=== PATIENT | female | born 1945 | race Caucasian/White ===

== ENCOUNTER 2017-05-16 18:43 | Emergency (ER) | payer OTHER ==
[~2017-05-16] VITALS: Ht 157.5 cm; Wt 74.8 kg
--- NOTE | ~2017-05-16 | EKG ---
[address] [email or web address] [address] ELECTROCARDIOGRAM REPORT Name: CONCHITASAMI ROSA M [facility] #[id number] Admission: 05/16/17 Attend Phys: Discharge: 05/16/17 Date of : 49 Report #: [id number] THIS REPORT FOR: //name// [facility] ED Test Date: 2017-05-16 Test Time: 19:50:16 Pat Name: SAMI ARANGO Department: Room: Gender: F Bundle Shaker: [id number] : 1945 Requested By: Dani Doll Order Number: [id number] MD: Cole Anne Measurements Intervals [place] Rate: 87 P: 41 UT: 136 QRS: 3 QRSD: 74 T: 27 QT: 383 QTc: 461 Interpretive Statements Sinus rhythm Left ventricular hypertrophy Compared to ECG 12/13/2013 17:36:03 No significant changes Electronically Signed On 05-16-2017 23:12:46 CDT by Cole Anne [email or web address] <ELECTRONICALLY SIGNED> By: Cole Anne MD 05/16/17 2312 D: 10/1947 49 Cole Anne MD /KARIME
[~2017-05-16 18:43] MED LIST: ADULT LOW DOSE81 MG PO; BAYER CHEWABLE81 MG PO; CALCIUM 500 +1 EAC5 PO; CATAPRES0.2 MG PO; CHLORTHALIDONE25 MG PO; CINNAMON PO; CLARITIN10 MG PO; COUMADIN 3 MG TA3 M1 PO; DAYPRO600 MG PO; ECONAZOLE 1% CR30 G1; ESTRACE2 MG PO; FENOFIBRATE160 MG PO; FISH OIL 1,001000 M1 PO; FLUOROURACIL40 GM TP; GARLIC OIL1 EAC1 PO; HYDROCODON-ACE1 EAC7 PO; MILK THISTLE500 MG PO; MIRALAX17 GM PO; MIRALAX255 GM PO; MOBIC7.5 MG PO; MULTIVITAMINS1 EAC7 PO; NIACIN 500 MG500 M1 PO; PROVENTIL HFA6.7 G1 INH; REFRESH TEARS15 ML OPHTHALMIC; TIZANIDINE HCL 22 M1 PO; ZANAFLEX4 MG PO
[2017-05-16] MEDS ORDERED: REQUIP0.5 MG PO (19:01)
[2017-05-16] MEDS ORDERED: PROTONIX 20 MG20 M1 PO (19:01)
[2017-05-16] MEDS ORDERED: TUMERIC PO (19:01)
[2017-05-16] MEDS ORDERED: GEMFIBROZIL 60600 MG PO (19:10)
[2017-05-16] MEDS ORDERED: TURMERIC 500 M1 EACH PO (19:12)
[2017-05-16 19:45] LABS: URINE BILIRUBIN NEGATIVE (Negative); URINE BLOOD NEGATIVE (Negative); URINE COLOR YELLOW; URINE GLUCOSE-RANDOM* NEGATIVE (Negative); URINE KETONES NEGATIVE (Negative); URINE PROTEIN (DIPSTICK) NEGATIVE (Negative); URINE UROBILINOGEN 0.2 E.U./dl (0.2-1.0)
[2017-05-16 19:46] LABS: URINE LEUKOCYTES-REFLEX 2+ (Negative)
[2017-05-16 19:58] LABS: CASTS None Seen /LPF (None Seen); CRYSTALS None Seen /LPF (None Seen); SQUAMOUS >10 Many /LPF (0-3); URINE RBC 0-2 Rare /HPF (0-2); URINE WBC-REFLEX >25 Many /HPF (0-5); WBC CLUMPS Few (None Seen)
[2017-05-16 20:01] LABS: HEMATOCRIT 39.5 % (37.0-47.0); HEMOGLOBIN 13.1 gm/dL (12.0-15.0); MCH 30.8 pg (26.0-34.0); MCHC 33.2 g/dL (28.0-37.0); MCV 92.7 fL (80.0-100.0); PLATELET COUNT 253 thou/uL (150-400); RBC 4.26 mil/uL (4.20-5.00); RDW 12.9 % (10.5-14.5); WBC 5.3 thou/uL (4.0-11.0)
[2017-05-16 20:04] LABS: MANUAL DIFF YES
[2017-05-16 20:12] LABS: ANION GAP 8 mmol/L (7-16); BUN 15 mg/dL (7-18); CALCIUM 9.5 mg/dL (8.5-10.1); CHLORIDE 106 mmol/L (98-107); CO2 27 mmol/L (21-32); CREATININE 0.9 mg/dL (0.6-1.0); GLUCOSE 124 mg/dL (74-106); POTASSIUM 3.9 mmol/L (3.5-5.1); SODIUM 141 mmol/L (136-145)
[2017-05-16 20:19] LABS: APTT 28.5 Seconds (24.5-32.8); PROTIME 10.4 Seconds (9.3-11.4)
[2017-05-16 20:21] LABS: ALBUMIN 3.7 g/dL (3.4-5.0); ALKALINE PHOSPHATASE 151 U/L (46-116); MAGNESIUM 2.3 mg/dL (1.8-2.4); SGOT 38 U/L (15-37); SGPT 33 U/L (30-65); TOTAL BILIRUBIN 0.3 mg/dL (<0.1-1.0); TOTAL PROTEIN 10.5 g/dL (6.4-8.2); TROPONIN-I < 0.04 ng/mL (<0.04-0.07)
[2017-05-16 20:55] LABS: ABSOLUTE NEUTROPHILS 2.2 thou/uL (1.4-8.2); ANISOCYTOSIS SLIGHT; MICROCYTES SLIGHT; TOTAL CELL COUNT 100
[2017-05-16] MEDS ORDERED: KEFLEX500 MG PO (21:42)
[2017-05-16] MEDS ORDERED: TRAMADOL 50 MG50 MG PO (21:42)
== END 2017-05-16 21:59 | disposition home or self-care (01) ==
LOC: ER 18:43
PROVIDERS: Emergency Medicine
DX: R06.00 Dyspnea, unspecified (principal); N39.0 Urinary tract infection, site not specified; K76.0 Fatty (change of) liver, not elsewhere classified; K21.9 Gastro-esophageal reflux disease without esophagitis; E78.00 Pure hypercholesterolemia, unspecified; I10 Essential (primary) hypertension; I26.99 Other pulmonary embolism without acute cor pulmonale; Z90.710 Acquired absence of both cervix and uterus; Z98.890 Other specified postprocedural states; Z88.6 Allergy status to analgesic agent

== ENCOUNTER → 2018-01-09 | Outpatient (CLI) | payer OTHER ==
[~2018-01-09] MED LIST changes: +GEMFIBROZIL 60600 MG PO; +KEFLEX500 MG PO; +PROTONIX 20 MG20 M1 PO; +REQUIP0.5 MG PO; +TRAMADOL 50 MG50 MG PO; +TUMERIC PO; +TURMERIC 500 M1 EACH PO
== END ==
LOC: RAD 11:22
DX: M48.07 Spinal stenosis, lumbosacral region (principal); M51.37 Other intervertebral disc degeneration, lumbosacral region; M47.896 Other spondylosis, lumbar region; M54.16 Radiculopathy, lumbar region

== ENCOUNTER → 2018-02-06 | Outpatient (CLI) | payer OTHER ==
[~2018-02-06] VITALS: Ht 157.5 cm; Wt 76.2 kg
[~2018-02-06] MED LIST changes: +CINNAMON500 MG PO; +NEURONTIN 300300 M1 PO; -PROTONIX 20 MG20 M1 PO; +PROTONIX40 M1 PO; +TOPICORT 0.25%15 GM TOP
--- NOTE | ~2018-02-06 | HPC ---
[facility] [place] [address] [place] [address] PAIN MANAGEMENT CONSULTATION Name: SAMI ARANGO [facility] [id number] Admission: 02/06/18 Attend Phys: Pako Yoder DO Discharge: Date of : 49 Report #: [id number] THIS REPORT FOR: //name// CC: Pako Pompa MD DATE OF SERVICE: 02/06/2018 REFERRING PHYSICIAN: John Pompa MD. CHIEF COMPLAINT: Right anterior thigh pain. HISTORY OF PRESENT ILLNESS: As you know, the patient is a 72-year-old female who has been experiencing right anterior thigh pain, which is steady from the groin to the knee. She indicates pain began on 12/22/2017. She states that she has undergone recent MRI of the lumbar spine, but no definitive findings to correlate to her symptoms. Due to lack of improvement with conservative treatment, the patient was referred to our clinic to discuss potential treatment options for anterior thigh pain. The patient indicates pain is continuous and constant, describes the pain as sharp, places current pain score 7/10, daily average at 10/10, worst pain has been 10/10. The patient states pain is exacerbated with sitting for any length of time, walking. Nothing tends to improve pain. The patient does state that she has pain while lying down, but intermittently it will exacerbate. She has been referred to our service to discuss initially what may be the source of her symptoms. PAST MEDICAL HISTORY: 1. Hypertension. 2. Degenerative joint disease. 3. Osteoarthritis. 4. Gastroesophageal reflux disease. 5. Restless leg syndrome. PAST SURGICAL HISTORY: 1. Back surgery in 1989. 2. Hysterectomy. 3. Rotator cuff repair. 4. Foot surgery. SOCIAL HISTORY: The patient denies tobacco, alcohol, IV or illicit drug use. She is retired, retired years ago, not receiving workmen's compensation nor is trying to obtain disability benefits. Unaccompanied today. [facility] [address] [place] [address] PAIN MANAGEMENT CONSULTATION Name: SAMI ARANGO Room #: REG [facility].#: [id number] Admission: 02/06/18 Attend Phys: Pako Yoder DO Discharge: Date of : 49 Report #: [id number] REVIEW OF SYSTEMS: Positive for fatigue and weakness, frequent and recurrent headaches, wearing corrective eyewear, hearing loss with tinnitus, earaches with drainage, chronic sinus problems with rhinitis, mouth sores, sexual difficulty, lightheadedness and dizziness, numbness and tingling sensations, nervousness, insomnia, heat and cold intolerance, gastroesophageal reflux disease, and restless leg. All other review of systems negative per 12-point review of systems other than those listed in history of present illness. Pain impact score 58/70, indicating severe interference of daily activities secondary to pain. ALLERGIES: No known drug allergies. CURRENT MEDICATIONS: Ropinirole 0.5 mg once a day, pantoprazole 40 mg per day, gemfibrozil 600 mg a day, hydrocodone 5/325 four times a day, cinnamon 1000 mg 2 tabs twice a day. IMAGING: MRI lumbar spine obtained on 01/23/2018 shows L1-L2 with mild bilateral facet changes. No central canal neural foraminal narrowing. L2-L3 mild generalized disk bulge, moderate facet degenerative changes and ligamentum flavum hypertrophy, no central canal or neural foraminal stenosis. L3-L4, mild generalized disk bulge, mild bilateral facet arthropathy. No significant central canal neural foraminal stenosis. L4-L5, mild generalized disk bulge, severe disk space loss, mild posterior degenerative changes, previous right hemilaminectomy, no central canal neural foraminal stenosis. L5-S1 unremarkable. PQRS: The patient has osteoarthritis of the low back, bilateral knees and foot. She has no rheumatoid arthritis. She places pain intensity 7/10. She is not a fall risk, has not had fallen in the last 3 months. She is on treatment for hypertension, but does not take any blood thinners. She is not on opioid medications, has low risk for opioid abuse. Functional assessment tool 58/70, indicating severe interference of daily activities secondary to pain. PHYSICAL EXAMINATION: VITAL SIGNS: Blood pressure 153/78, pulse is 82, respiratory rate 16, unlabored. The patient is 97% on room air. Height 5 feet 2 inches tall, weight 168 pounds, BMI calculated 30.7. GENERAL: Well-developed, well-nourished, well-hydrated 72-year-old female, appears stated age, placing current pain score no greater than 7/10. HEENT: Normocephalic, atraumatic. Pupils equal, round, reactive to light. Extraocular muscles are intact. Sclerae nonicteric without injection. NEUROLOGIC: Cranial nerves 2-12 grossly intact. Speech fluent. The patient deemed a good historian. [facility] [address] [place] [address] PAIN MANAGEMENT CONSULTATION Name: SAMI ARANGO Room #: REG [facility] García#: [id number] Admission: 02/06/18 Attend Phys: Pako Yoder DO Discharge: Date of : 49 Report #: [id number] LUNGS: Clear, no wheeze, rhonchi or rales. CARDIOVASCULAR: Regular. No appreciable gallop or rub. ABDOMEN: Soft, nontender, nondistended. EXTREMITIES: Show no clubbing, no cyanosis, no edema. MUSCULOSKELETAL: The patient has some palpatory tenderness over the paraspinal musculature of the lower lumbar spine, no spinous process tenderness. Seated straight leg raising negative. Supine straight leg raising negative. Karol test negative. Modified Gaenslen's positive for only axial back pain, no radiation of symptoms. She does have some palpatory tenderness along the quadriceps muscle on the right when compared to left. Muscle bulk and tone are symmetrical. Ankle clonus negative. Babinski is negative. ASSESSMENT: 1. Right anterior thigh pain. 2. Intermittent low back pain. PLAN: 1. The patient has been referred to our service to discuss potential treatment options for right anterior thigh pain. At this point, I am unable to advise the patient on appropriate treatment option as I cannot determine from her physical exam nor from her MRI the source of the symptoms. I am pleased to advise the patient that the findings on the MRI would not correlate with the distribution of pain that she is experiencing, thus interventional treatments would not be necessary, nor would a long-term therapy from a pain management be necessary. The findings on MRI do not provide distribution of symptoms into the anterior thigh. The only findings that would be at all potential of a source of discomfort would be the L4-L5 level, but again does not correlate to the distribution on the anterior thigh, radiating from the groin to the top of the knee. I advised such to the patient today. 2. The patient does appear to be suffering from some myofascial symptoms, possible EMG may be helpful in this case, though I do not feel that she has any radicular component. There could be some underlying peripheral nerve issue and possibly even some injury to the quadriceps itself, but nothing in the lower back that is concerning for radicular symptoms. Further evaluation with EMG could be recommended. I will defer to the primary team if they wish to have the EMG study completed. This would be helpful to at least potentially rule in or rule out a possible etiology. Again, by physical exam, history she provides, it does not appear to be a radicular issue given the findings on MRI, certainly not something that is generated from the low back. There is a possibility she may be experiencing an iliohypogastric or femoral type of injury, but this is not correlating to any findings from the lumbar area. 3. We made no changes in the patient's medication management. She is to continue current medical management as prescribed through her PCP. 4. Will be available to see the patient back in followup visit for further evaluation. At present, I do not have a definitive treatment option for this patient given the findings on physical exam and the lack of correlating findings [address] [address] PAIN MANAGEMENT CONSULTATION Name: ARANGOSAMI Room #: REG [facility] García#: [id number] Admission: 02/06/18 Attend Phys: Pako Yoder DO Discharge: Date of : 49 Report #: [id number] in the lumbar region. Recommend conservative treatment initially. If this is ineffective, EMG may be helpful in determining whether this is a peripheral neuropathy or some form of myopathy. 5. We wish to thank Dr. Pompa for the referral of the patient to our clinic. If she does return for further evaluation, we will keep you apprised of those discussions. At present, I do not have any interventional treatment or definitive treatment for this patient. Certainly we can see her back in followup visit if requested, but at this point, I would recommend further evaluation and more conservative treatment options. Again, we wish to thank Dr. Pompa for the referral of the patient to our clinic. By: [id number] Pako Yoder DO /nt
[2018-02-06 12:58] VITALS: BP 153/78
== END ==
LOC: PAIN 08:22
DX: M79.651 Pain in right thigh (principal); M54.5 Low back pain; I10 Essential (primary) hypertension; K21.9 Gastro-esophageal reflux disease without esophagitis

== ENCOUNTER → 2018-03-06 | Outpatient (CLI) | payer OTHER ==
[~2018-03-06] VITALS: Ht 157.5 cm; Wt 78.4 kg
--- NOTE | ~2018-03-06 | HPC ---
[facility] [place] [address] [place] [address] PAIN MANAGEMENT CONSULTATION Name: SAMI ARANGO Room #: REG [facility].#: [id number] Admission: 03/06/18 Attend Phys: Pako Yoder DO Discharge: Date of : 49 Report #: [id number] THIS REPORT FOR: //name// CC: Pako Rodrigues DATE OF SERVICE: 03/06/2018 CHIEF COMPLAINT: Right anterior thigh pain. HISTORY OF PRESENT ILLNESS: As you know, the patient is a 72-year-old female who has been experiencing right anterior thigh pain, which is steady from the groin to the knee. She indicates pain began on 12/22/2017. States that she has undergone MRI of the lumbar spine with no definitive findings to correlate symptoms. Due to lack of improvement, the patient was referred to our clinic. We saw the patient in consultation on 02/06/2018. At that visit, the patient was diagnosed with right anterior thigh pain, intermittent low back pain and started on gabapentin. The medication has worked well. She is now placing pain score 1-2/10, states pain is well controlled. She is having no side effects with the therapy. She is extremely pleased with response to medication, returning today for refill of therapy. ALLERGIES: No known drug allergies. CURRENT MEDICATIONS: Ropinirole 0.5 mg once a day, pantoprazole 40 mg once a day, gemfibrozil 600 mg once a day, hydrocodone 5/325 four times a day p.r.n., cinnamon extract 1000 mg 2 tabs twice a day, gabapentin 300 mg morning and 900 mg at night. SOCIAL HISTORY: The patient denies tobacco, alcohol, IV or illicit drug use. She is retired, retired years ago. She is unaccompanied today. PQRS: The patient has known osteoarthritis of the low back, bilateral knees and feet, has no rheumatoid arthritis. She places pain today at 1-/10, not a fall risk, has not had a fall in the last 3 months. She is not on blood thinners. She is treated for hypertension. She is not on opioids. She has a low opioid addiction potential. She is placing functional assessment pain impact score at moderate, 38/70. PHYSICAL EXAMINATION: VITAL SIGNS: Blood pressure 134/78, pulse 83, respiratory rate 16 and unlabored. The patient is 97% on room air. Height 5 feet 2 inches tall, weight 172.8 pounds, BMI calculated at 31.6. GENERAL: Well-developed, well-nourished, well-hydrated 72-year-old female appearing stated age, placing current pain score 1-210[place] [address] PAIN MANAGEMENT CONSULTATION Name: SAMI ARANGO ROSA M Room #: REG [facility] Raquel#: [id number] Admission: 03/06/18 Attend Phys: Pako Yoder DO Discharge: Date of : 49 Report #: [id number] HEENT: Normocephalic, atraumatic. Pupils equal, round, reactive to light. Extraocular muscles are intact. Sclerae nonicteric, without injection. EXTREMITIES: Show no clubbing, no cyanosis, no edema. MUSCULOSKELETAL: Seated straight leg raising negative. Supine straight leg raising negative. Karol's test negative. Modified Gaenslen's positive for axial low back pain. Ankle clonus negative. ASSESSMENT: 1. Right anterior thigh pain. 2. Intermittent low back pain. PLAN: 1. The patient has returned today in followup visit indicating good efficacy with the gabapentin therapy, she is taking 1 tab in the morning and 300 mg dose and 3 tabs at night, total of 900 mg dose. She is doing well with medication, denying side effects. She returns today requesting refill on the medications. She wishes no changes in therapy. She is pleased with response to medication and wishes to continue it for the foreseeable future. 2. The patient was provided a prescription of gabapentin 300 mg dose in the morning and 900 mg at night. She was given number 120 tablets, 2 refills. 3. The patient can return to our clinic in 3 months for refill of medication. She can receive this medication also from her primary care physician. It is not a controlled substance and she is stable on the dose without any side effects. If she wishes, she can return to our clinic in 3 months for refills or follow up with her PCP for her typical treatment for other issues and receive refills of her gabapentin. 4. We wish to thank Dr. Pompa for the referral of patient to our clinic. We are pleased she has done well with the changes in medication therapy. We will be available to see her back in followup visit for refills or she can follow up with your services for further treatment. Again, we wish to thank Dr. Pompa for the opportunity. <ELECTRONICALLY SIGNED> By: Pako Yoder DO 03/07/18 0838 [id number] Pako Yoder DO /nt
[2018-03-06 08:54] VITALS: BP 134/78
== END ==
LOC: PAIN 07:02
DX: M79.651 Pain in right thigh (principal); M54.5 Low back pain

== ENCOUNTER → 2021-05-27 | Outpatient (CLI) | payer OTHER | END | disposition home or self-care (01) | LOC: RAD 13:22 | PROVIDERS: ATTEND Neuromusculoskeletal Medicine & OMM | DX: M41.84 Other forms of scoliosis, thoracic region (principal); M47.817 Spondylosis without myelopathy or radiculopathy, lumbosacral region; M54.50 Low back pain, unspecified; G89.29 Other chronic pain ==

== ENCOUNTER → 2021-06-21 | Outpatient (CLI) | payer OTHER | LOC: MRI 06-15 14:10 | PROVIDERS: ATTEND Neuromusculoskeletal Medicine & OMM | DX: M47.814 Spondylosis without myelopathy or radiculopathy, thoracic region (principal); M43.8X4 Other specified deforming dorsopathies, thoracic region; M41.84 Other forms of scoliosis, thoracic region; M51.44 Schmorl's nodes, thoracic region ==

== ENCOUNTER → 2021-08-11 | Outpatient (CLI) | payer MEDICARE | LOC: BC 12:56 | PROVIDERS: ATTEND Nurse Practitioner | DX: Z12.31 Encounter for screening mammogram for malignant neoplasm of breast (principal); N64.89 Other specified disorders of breast ==

== ENCOUNTER → 2021-08-17 | Outpatient (CLI) | payer MEDICARE | LOC: ULTRA 09:40 | PROVIDERS: ATTEND Nurse Practitioner | DX: N63.10 Unspecified lump in the right breast, unspecified quadrant (principal); N63.20 Unspecified lump in the left breast, unspecified quadrant ==